=== PATIENT | female | born 1985 | race Caucasian/White ===

== ENCOUNTER 2017-01-10 04:25 | Inpatient (IN) | payer OTHER ==
[2017-01-10] MEDS ORDERED: Levothyroxine TAB* 175 MCG TAB PO SCH (06:00)
[2017-01-10] MEDS ORDERED: Dibucaine 1% 28.35 GM TUBE PR PRN (14:16)
[2017-01-10] MEDS ORDERED: Acetaminophen TAB* 325 MG PO PRN (14:16)
[2017-01-10] MEDS ORDERED: Witch Hazel PAD* JAR TOPICAL PRN (14:16)
[2017-01-10] MEDS: Ibuprofen TAB* 600 MG PO PRN ×2 (14:29→21:36)
[2017-01-10] MEDS: Docusate CAP* 100 MG PO SCH (21:36)
[2017-01-11 06:52] LABS: Hematocrit 34 % (35-47); Hemoglobin 11.6 g/dl (12.0-16.0); Mean Corpuscular HGB Conc 34 g/dl (31-36); Mean Corpuscular Hemoglobin 28 pg (27-31); Mean Corpuscular Volume 82 fL (80-97); Mean Platelet Volume 8 um3 (7.4-10.4); Red Blood Count 4.11 10^6/ul (4.0-5.4); Red Cell Distribution Width 15 % (10.5-15); White Blood Count 10.2 10^3/ul (3.5-10.8)
[2017-01-11] MEDS: [UNRECOGNIZED DRUG - OTHER] PO SCH ×2 (07:35→19:38)
[2017-01-11] MEDS ORDERED: Ferrous Gluconate TAB* 324 MG TAB PO SCH (09:00)
[2017-01-11] MEDS: Docusate CAP* 100 MG PO SCH ×3 (09:03→21:10)
[2017-01-12] MEDS: Levothyroxine TAB* 175 MCG TAB PO SCH ×2 (04:24→07:24)
[2017-01-12] MEDS: Ibuprofen TAB* 600 MG PO PRN ×2 (07:34→14:19)
[2017-01-12 07:56] VITALS: BP 104/66
[2017-01-12] MEDS: [UNRECOGNIZED DRUG - OTHER] PO SCH (09:00)
[2017-01-12] MEDS: Docusate CAP* 100 MG PO SCH ×2 (09:11→14:19)
== END 2017-01-12 16:16 | disposition home or self-care (01) | DRG 560 ==
LOC: MCHOBOUT 04:25 → MCHOB 04:59
PROVIDERS: ADMIT Midwife; ATTEND Midwife
PROC: 10E0XZZ Delivery of Products of Conception, External Approach (ICD-10-PCS; principal; 2017-01-10)
PROC: 0HQ9XZZ Repair Perineum Skin, External Approach (ICD-10-PCS; 2017-01-10)
DX: O24.429 Gestational diabetes mellitus in childbirth, unspecified control (principal); E03.9 Hypothyroidism, unspecified; O99.284 Endocrine, nutritional and metabolic diseases complicating childbirth; O70.0 First degree perineal laceration during delivery; Z3A.40 40 weeks gestation of pregnancy; Z37.0 Single live birth
CPT/HCPCS: 36415; 85025; A9270-GY

== ENCOUNTER 2018-09-10 16:47 | Emergency (ER) | payer OTHER ==
[2018-09-10 18:21] LABS: ABS Basophils 0.1 10^3/ul (0-0.2); ABS Eosinophils 0.4 10^3/ul (0-0.6); ABS Lymphocytes 3.2 10^3/ul (1.0-4.8); ABS Monocytes 0.6 10^3/ul (0-0.8); ABS Neutrophils 5.3 10^3/ul (1.5-7.7); ABS Nucleated RBC 0 10^3/ul; Eosinophil % 4.6 %; Hematocrit 35 % (33-41); Hemoglobin 12.2 g/dL (12.0-16.0); Lymphocyte % 33.2 %; Mean Corpuscular HGB Conc 35 g/dL (31-36); Mean Corpuscular Hemoglobin 30 pg (27-31); Mean Corpuscular Volume 86 fL (80-97); Mean Platelet Volume 7.4 fL (7.4-10.4); Nucleated Red Blood Cells % 0; Platelet Count 178 10^3/uL (150-450); Red Blood Count 4.07 10^6 /uL (3.70-4.87); Red Cell Distribution Width 14 % (10.5-15); White Blood Count 9.5 10^3/uL (3.5-10.8)
[2018-09-10 18:38] LABS: Albumin 3.5 g/dL (3.2-5.2); Albumin/Globulin Ratio 1.2 (1-3); BUN/Creatinine Ratio 16.7 (8-20); C Reactive Protein 12.53 mg/L (<8.01); Calcium 8.9 mg/dL (8.6-10.3); EGFR African American 181.4 (>60); EGFR Non-African American 149.9 (>60); Potassium 3.4 mmol/L (3.5-5.0); Total Bilirubin 0.3 mg/dL (0.2-1.0); Total Protein 6.5 g/dL (6.4-8.9)
[2018-09-10 19:59] LABS: Urine Appearance Cloudy; Urine Bilirubin Negative (Negative); Urine Blood Negative (Negative); Urine Color Yellow; Urine Glucose Negative (Negative); Urine Ketones Negative (Negative); Urine Nitrite Negative (Negative); Urine Protein Negative (Negative); Urine Specific Gravity 1.008 (1.010-1.030); Urine Urobilinogen Negative (Negative)
--- NOTE | 2018-09-10 21:47 | ED ---
- HPI Summary HPI Summary: Patient is a 32 y/o F presenting to ED with complaints of sharp, stabbing umbilical pain throughout today. She is 26 weeks , states that she has been having what she describes as muscular pain at left of the umbilical area for the past few months. This morning, she began to experience current presentation of pain at her mid umbilical region. She notes that the area is tender. Slight nausea is endorsed, no vomiting reported. She states that she has felt the baby moving throughout the night. Hx of thyroid cancer, for which she had surgery. On triage, pain is rated 7/10. Nothing is noted to aggravate/ alleviate Sx. Home medications and allergies are reviewed. - History of Current Complaint Chief Complaint: EDAbdPain Stated Complaint: DOCTOR WANTS STRANGULATED HERNIA CHECKED PER PT Time Seen by Provider: 09/10/18 21:20 Hx Obtained From: Patient Onset/Duration: Started Hours Ago - pain throughout today, Started Weeks Ago - a few months of left sided umbilical muscular pain, Still Present Timing: Constant, Lasting Hours - pain throughout today, Lasting Weeks - a few months of left sided umbilical muscular pain Severity: Severe - 7/10 Current Severity: Severe - 7/10 Pain Intensity: 7 Location of Pain: Other: - umbilical area Aggravating Factors: Nothing Alleviating Factors: Nothing Associated Signs and Symptoms: Positive: Nausea. Negative: Vomiting - Assessment Hx Now: No SAB: 0 IEA: 0 Hx Hysterectomy: No - Additional Pertinent History Maternal Blood Type and Rh: A Positive - Allergies/Home Medications Allergies/Adverse Reactions: Allergies Allergy/AdvReac Type Severity Reaction Status Date / Time No Known Allergies Allergy Verified 12/24/15 15:54 PMH/Surg Hx/FS Hx/Imm Hx Endocrine/Hematology History: Reports: Hx Thyroid Disease Denies: Hx Diabetes Cardiovascular History: Denies: Hx Hypertension Respiratory History: Denies: Hx Asthma, Hx Chronic Obstructive Pulmonary Disease (COPD) GI History: Denies: Hx Ulcer - Cancer History Cancer Type, Location and Year: thyroid - Surgical History Surgery Procedure, Year, and Place: thyroidectomy. LEEP Infectious Disease History: No Infectious Disease History: Denies: Hx Clostridium Difficile, Hx Hepatitis, Hx Human Immunodeficiency Virus (HIV), Hx of Known/Suspected MRSA, Hx Shingles, Hx Tuberculosis, Hx Known/ Suspected VRE, Hx Known/Suspected VRSA, History Other Infectious Disease, Traveled Outside the [place] in Last 30 Days - Family History Known Family History: Positive: Other - cholecystectomy (mother) - Social History Alcohol Use: None Substance Use Type: Reports: None Smoking Status (MU): Never Smoked Tobacco Review of Systems Negative: Fever Positive: Abdominal Pain - umbilical , Nausea. Negative: Vomiting All Other Systems Reviewed And Are Negative: Yes Physical Exam - Summary Physical Exam Summary: Appearance: Well-appearing, Well-nourished, lying in bed comfortably Skin: Warm, dry, no obvious rash Eyes: sclera anicteric, no conjunctival pallor ENT: mucous membranes moist, pharynx appears normal Neck: Supple, nontender Respiratory: Clear to auscultation, no signs of respiratory distress Cardiovascular: Normal S1, S2. No murmurs. Normal distal pulses in tibial and radial bilaterally. Abdomen: Soft, normal active bowel sounds present; abdomen is gravid consistent with patient's dates. There is a small, periumbilical hernia that is tender and approximately the size of a blueberry. Musculoskeletal: Normal, Strength/ROM Intact Neurological: A&Ox3, awake and alert, mentation is normal, speech is fluent and appropriate Psychiatric: affect is normal, does not appear anxious or depressed - Physical Exam Triage Information Reviewed: Yes Vital Signs On Initial Exam: Initial Vitals Temp Pulse Resp BP Pulse Ox 97.4 F 96 16 123/70 98 09/10/18 16:57 09/10/18 16:57 09/10/18 16:57 09/10/18 16:57 09/10/18 16:57 Vital Signs Reviewed: Yes Diagnostics - Vital Signs Vital Signs Temp Pulse Resp BP Pulse Ox 09/10/18 19:36 97.8 F 79 18 109/70 98 09/10/18 16:57 97.4 F 96 16 123/70 98 - Laboratory Lab Results: Lab Results 09/10/18 09/10/18 09/10/18 Range/Units 18:11 18:11 18:12 WBC 9.5 (3.5-10.8) 10^3/uL RBC 4.07 (3.70-4.87) 10^6 /uL Hgb 12.2 (12.0-16.0) g/dL Hct 35 (33-41) % MCV 86 (80-97) fL MCH 30 (27-31) pg MCHC 35 (31-36) g/dL RDW 14 (10.5-15) % Plt Count 178 (150-450) 10^3/uL MPV 7.4 (7.4-10.4) fL Neut % (Auto) 55.1 % Lymph % (Auto) 33.2 % [place] % (Auto) 6.5 % Eos % (Auto) 4.6 % Baso % (Auto) 0.6 % Absolute Neuts (auto) 5.3 (1.5-7.7) 10^3/ul Absolute Lymphs (auto) 3.2 (1.0-4.8) 10^3/ul Absolute Monos (auto) 0.6 (0-0.8) 10^3/ul Absolute Eos (auto) 0.4 (0-0.6) 10^3/ul Absolute Basos (auto) 0.1 (0-0.2) 10^3/ul Absolute Nucleated RBC 0 10^3/ul Nucleated RBC % 0 Sodium 136 (135-145) mmol/L Potassium 3.4 L (3.5-5.0) mmol/L Chloride 106 (101-111) mmol/L Carbon Dioxide 22 (22-32) mmol/L Anion Gap 8 (2-11) mmol/L BUN 8 (6-24) mg/dL Creatinine 0.48 L (0.51-0.95) mg/dL Est GFR ( Amer) 181.4 (>60) Est GFR (Non-Af Amer) 149.9 (>60) BUN/Creatinine Ratio 16.7 (8-20) Glucose 109 H (70-100) mg/dL Lactic Acid 1.1 (0.5-2.0) mmol/L Calcium 8.9 (8.6-10.3) mg/dL Total Bilirubin 0.30 (0.2-1.0) mg/dL AST 11 L (13-39) U/L ALT 9 (7-52) U/L Alkaline Phosphatase 51 (34-104) U/L C-Reactive Protein 12.53 H (<8.01) mg/L Total Protein 6.5 (6.4-8.9) g/dL Albumin 3.5 (3.2-5.2) g/dL Globulin 3.0 (2-4) g/dL Albumin/Globulin Ratio 1.2 (1-3) Lipase 20 (11.0-82.0) U/L Urine Color Urine Appearance Urine pH (5-9) Ur Specific [place] (1.010-1.030) Urine Protein (Negative) Urine Ketones (Negative) Urine Blood (Negative) Urine Nitrate (Negative) Urine Bilirubin (Negative) Urine Urobilinogen (Negative) Ur Leukocyte Esterase (Negative) Urine Glucose (Negative) 09/10/18 Range/Units 19:42 WBC (3.5-10.8) 10^3/uL RBC (3.70-4.87) 10^6 /uL Hgb (12.0-16.0) g/dL Hct (33-41) % MCV (80-97) fL MCH (27-31) pg MCHC (31-36) g/dL RDW (10.5-15) % Plt Count (150-450) 10^3/uL MPV (7.4-10.4) fL Neut % (Auto) % Lymph % (Auto) % [place] % (Auto) % Eos % (Auto) % Baso % (Auto) % Absolute Neuts (auto) (1.5-7.7) 10^3/ul Absolute Lymphs (auto) (1.0-4.8) 10^3/ul Absolute Monos (auto) (0-0.8) 10^3/ul Absolute Eos (auto) (0-0.6) 10^3/ul Absolute Basos (auto) (0-0.2) 10^3/ul Absolute Nucleated RBC 10^3/ul Nucleated RBC % Sodium (135-145) mmol/L Potassium (3.5-5.0) mmol/L Chloride (101-111) mmol/L Carbon Dioxide (22-32) mmol/L Anion Gap (2-11) mmol/L BUN (6-24) mg/dL Creatinine (0.51-0.95) mg/dL Est GFR ( Amer) (>60) Est GFR (Non-Af Amer) (>60) BUN/Creatinine Ratio (8-20) Glucose (70-100) mg/dL Lactic Acid (0.5-2.0) mmol/L Calcium (8.6-10.3) mg/dL Total Bilirubin (0.2-1.0) mg/dL AST (13-39) U/L ALT (7-52) U/L Alkaline Phosphatase (34-104) U/L C-Reactive Protein (<8.01) mg/L Total Protein (6.4-8.9) g/dL Albumin (3.2-5.2) g/dL Globulin (2-4) g/dL Albumin/Globulin Ratio (1-3) Lipase (11.0-82.0) U/L Urine Color Yellow Urine Appearance Cloudy Urine pH 6.0 (5-9) Ur Specific [place] 1.008 L (1.010-1.030) Urine Protein Negative (Negative) Urine Ketones Negative (Negative) Urine Blood Negative (Negative) Urine Nitrate Negative (Negative) Urine Bilirubin Negative (Negative) Urine Urobilinogen Negative (Negative) Ur Leukocyte Esterase Negative (Negative) Urine Glucose Negative (Negative) Result Diagrams: 09/10/18 18:11 09/10/18 18:11 Lab Statement: Any lab studies that have been ordered have been reviewed, and results considered in the medical decision making process. - Ultrasound No standard instances Ultrasound Interpretation Completed By: Radiologist Summary of Ultrasound Findings: ABDOMINAL US IMPRESSION: An umbilical hernia containing what appears to be a small bowel loop which does. not appear to change with valsalsa maneuver. If incarceration of the hernia. with complication such as small bowel obstruction is of clinical concern,. further evaluation with a CT of the abdomen may be considered. THIS REPORT WAS REVIEWED BY DR. MASON. Re-Evaluation - Re-Evaluation First Eval Re-Evaluation Time: 21:52 Change: Unchanged Comment: Informed of consult with Man[facility], patient is agreeable with plan. Attempted to reduce hernia, was unsuccessful. Second attempt to be made later. Second Eval Re-Evaluation Time: 00:19 Change: Improved Comment: Second attempt at reduction was successful. Patient will be discharged to home and follow up with Dr. Goel, she is agreeable with this. Course/Dx - Course Course Of Treatment: Patient is a 32 y/o F presenting to ED with complaints of sharp, stabbing umbilical pain throughout today. She is 26 weeks , states that she has been having what she describes as muscular pain at left of the umbilical area for the past few months. This morning, she began to experience current presentation of pain at her mid umbilical region. She notes that the area is tender. Slight nausea is endorsed, no vomiting reported. She states that she has felt the baby moving throughout the night. Hx of thyroid cancer, for which she had surgery. On physical exam, abdomen is gravid consistent with patient's dates. There is a small, periumbilical hernia that is tender and approximately the size of a blueberry. Patient's case was discussed with Dr. Goel at 2146, Dr. Goel recommends attempting to reduce hernia and to obtain US. Labs showed potassium 3.4, creatinine 0.48, glucose 109, lactic acid 1.1, AST 11, CRP 12.53, lipase 20. UA was negative. ABDOMINAL US IMPRESSION: An umbilical hernia containing what appears to be a small bowel loop which does. not appear to change with valsalsa maneuver. If incarceration of the hernia. with complication such as small bowel obstruction is of clinical concern,. further evaluation with a CT of the abdomen may be considered. First hernia reduction attempt was unsuccessful, second was successful. Results of labs and tests were discussed patient will be discharged to home and follow up with Dr. Goel, she is agreeable with this. - Diagnoses Provider Diagnoses: Umbilical hernia - Provider Notifications Discussed Care Of Patient With: Javier Goel Time Discussed With Above Provider: 21:47 Instructed by Provider To: Other - Patient's case was discussed with Dr. Goel at 2146, Dr. Goel recommends attempting to reduce hernia and to obtain US. Discharge - Sign-Out/Discharge Documenting (check all that apply): Patient Departure - discharge Patient Received Moderate/Deep Sedation with Procedure: No - Discharge Plan Condition: Stable Disposition: HOME Patient Education Materials: Umbilical Hernia (ED) Forms: *Work Release Referrals: Javier Goel MD [Medical Doctor] - Additional Instructions: Call Dr. Goel' office in the morning and make an appt for later in the week so he can examine you and make sure everything is ok with the hernia. It will hurt, so you need to rest it and avoid lifting or anything that will tend to make you tense your abdomen. Ice can help, as can tylenol. I do not expect worsening symptoms, or new symptoms such as nausea/vomiting, so if that happens you should check in with Dr. Goel sooner, or come back to the ED. - Billing Disposition and Condition Condition: STABLE Disposition: Home - Attestation Statements Document Initiated by Luz Maria: Yes Documenting Scribe: PAWAN MEDEROS Provider For Whom Luz Maria is Documenting (Include Credential): FRANCOISE MASON MD Scribe Attestation: IPAWAN, scribed for FRANCOISE MASON MD on 09/15/18 at 1847. Scribe Documentation Reviewed: Yes Provider Attestation: The documentation as recorded by the PAWAN alvarez accurately reflects the service I personally performed and the decisions made by me, FRANCOISE MASON MD Status of Scribe Document: Viewed
[2018-09-11 00:30] VITALS: BP 105/59
== END 2018-09-11 00:29 | disposition home or self-care (01) ==
LOC: ED 16:47
DX: O26.92 Pregnancy related conditions, unspecified, second trimester (principal); K42.9 Umbilical hernia without obstruction or gangrene; R10.33 Periumbilical pain; E07.9 Disorder of thyroid, unspecified; Z3A.26 26 weeks gestation of pregnancy
CPT/HCPCS: 36415; 76705; 80053; 81003; 83605; 83690; 85025; 86140; 99282

== ENCOUNTER 2018-09-24 07:51 | Day surgery (SDC) | payer OTHER ==
[~2018-09-24 07:51] MED LIST: Buffered Lidocaine 1% SYRIN* 1 ML/SYRINGE INTRADERM ONE; Lactated Ringers 1000 ML Bag* 1,000 ML IV SCH
[2018-09-24] MEDS ORDERED: Buffered Lidocaine 1% SYRIN* 1 ML/SYRINGE INTRADERM ONE (08:13)
[2018-09-24] MEDS ORDERED: ceFAZolin 2 GM PREMIX in ORs 2 GM/50 ML BAG IVPB ONE (08:13)
[2018-09-24] MEDS ORDERED: Famotidine IV* 10 MG/ML 2 ML (20 mg) ONE (08:43)
[2018-09-24] MEDS ORDERED: Lidocaine 1% INJ* 10 MG/ML 30 ML SDV ONE (09:59)
[2018-09-24] MEDS ORDERED: Bupivacaine 0.5% W/EPI SDV* 30 ML VIAL ONE (09:59)
[2018-09-24] MEDS ORDERED: diPHENhydraMINE IV* 50 MG/ML 1 ml VIAL (BENADRYL) ONE (10:08)
[2018-09-24] MEDS ORDERED: Ketorolac INJ* 30 MG/ML 1 ML VIAL ONE (10:09)
[2018-09-24] MEDS ORDERED: Lidocaine 2% PF * 5 ML VIAL ONE (10:09)
[2018-09-24] MEDS ORDERED: Propofol* 10 MG/ML 20 ML BTL ONE ×2 (10:09→10:35)
[2018-09-24] MEDS ORDERED: Acetaminophen IV 1GM/100ML * 100 ML ONE (10:21)
[2018-09-24] MEDS ORDERED: DiMENhydriNATE IV* 50 MG/ML VIAL IV PUSH PRN (10:28)
[2018-09-24] MEDS ORDERED: Ondansetron INJ* 2 MG/ML VIAL IV PRN (10:28)
[2018-09-24] MEDS ORDERED: Acetaminophen IV 1GM/100ML * 1,000 MG/100 ML VIAL IVPB ONE (10:28)
[2018-09-24] MEDS ORDERED: Naloxone* 0.4 MG/ML 1 ML VIAL IV PRN (10:28)
[2018-09-24 11:18] VITALS: BP 108/72
--- NOTE | 2018-09-25 02:27 | OP ---
CC: Aster Ash MD; Jamar Wilson MD * DATE OF OPERATION: 09/24/18 - [facility] DATE OF : 85 SURGEON: Javier Goel MD BELT SANDER: None. ANESTHESIOLOGIST: Dr. Salter. ANESTHESIA: Local MAC. PRE-OP DIAGNOSIS: Umbilical hernia. POST-OP DIAGNOSIS: Umbilical hernia. OPERATIVE PROCEDURE: Open repair umbilical hernia. ESTIMATED BLOOD LOSS: Minimal. IV FLUIDS: Crystalloid. SPECIMEN: None. DRAINS: None. COMPLICATIONS: None. COUNTS: Instruments, needle, and sponge counts were correct. DESCRIPTION OF PROCEDURE: The patient was brought to the operating room and placed on the table supine. Sequential compression devices were placed on both lower extremities and the patient was administered intravenous antibiotics as appropriate. She received intravenous sedation. She was positioned left decubitus due to . She was prepped and draped in the usual sterile fashion. A time-out was performed. Local anesthetic was infiltrated to the skin and soft tissue in the periumbilical region. A curvilinear infraumbilical incision was created and cautery was used to divide the subcutaneous tissues. The umbilical stalk was dissected off the anterior abdominal wall. Umbilical hernia defect measuring 2 cm was identified. was reduced. The edges of the fascia were well defined and healthy. Primary closure was performed with 0 Ethibond suture using two [id number] stitches to complete the closure. Umbilical stalk was reapproximated with 3-0 Vicryl. Skin was closed with 4-0 Monocryl in running subcuticular fashion. Steri- Strips were applied with 4x4 gauze. The patient tolerated the procedure well and was awakened and transferred to the recovery in stable condition. [id number]/[facility] #: [id number] [facility]
== END 2018-09-24 13:37 | disposition home or self-care (01) ==
LOC: OR 07:51
PROVIDERS: ATTEND Surgery
DX: K42.9 Umbilical hernia without obstruction or gangrene (principal); E03.9 Hypothyroidism, unspecified; F41.9 Anxiety disorder, unspecified; Z33.1 Pregnant state, incidental; R00.2 Palpitations
CPT/HCPCS: J0690; J1200; J1885; J2704

== ENCOUNTER 2018-10-16 20:32 | Emergency (ER) | payer OTHER ==
--- NOTE | 2018-10-16 22:43 | ED ---
Abdominal Pain/Female - HPI Summary HPI Summary: Patient with history of 31 weeks complains of intermittent right upper quadrant pain 2 months. States pain has been getting worse and has been more constant and intense past 2 days. Pain now constant, rated 7/10. Associated with some nausea and decreased by mouth intake. Patient states pain does not change with movement, not particularly associated with eating. Denies trauma, fever, cough, sore throat, CP, SOB, V/D, change in urine, change in BM, vaginal symptoms. Medical history is hypothyroid. Abdominal surgical history is umbilical hernia repair 3 weeks ago. - History of Current Complaint Chief Complaint: EDAbdPain Stated Complaint: UPPER RIGHT ABD PAIN PER PT Time Seen by Provider: 10/16/18 22:39 Hx Obtained From: Patient Hx Last Menstrual Period: 11/16/14 Onset/Duration: Gradual Onset, Lasting Weeks Timing: Constant Severity Initially: Severe Severity Currently: Severe Pain Intensity: 8 Pain Scale Used: 0-10 Numeric Location: Discrete At: RUQ Radiates: No Character: Sharp, Cramping Aggravating Factor(s): Deep Breaths Alleviating Factor(s): Nothing Associated Signs and Symptoms: Positive: Decreased Appetite, Nausea Allergies/Adverse Reactions: Allergies Allergy/AdvReac Type Severity Reaction Status Date / Time No Known Allergies Allergy Verified 10/16/18 20:37 PMH/Surg Hx/FS Hx/Imm Hx Endocrine/Hematology History: Reports: Hx Thyroid Disease - HX OF CANCER IN 2008 -THYROIDECTOMY Denies: Hx Diabetes Cardiovascular History: Denies: Hx Hypertension, Other Cardiovascular Problems/Disorders Respiratory History: Denies: Hx Asthma, Hx Chronic Obstructive Pulmonary Disease (COPD), Other Respiratory Problems/Disorders GI History: Denies: Hx Ulcer, Other GI Disorders History: Denies: Other Problems/Disorders Musculoskeletal History: Denies: Other Musculoskeletal History Sensory History: Denies: Hx Contacts or Glasses, Hx Hearing Aid Opthamlomology History: Denies: Hx Contacts or Glasses EENT History: Denies: Hx Deafness Neurological History: Denies: Hx Dementia, Other Neuro Impairments/Disorders Psychiatric History: Reports: Hx Anxiety - NO MEDICATION FOR- STARTED RECENTLY- REPORTS TALKING TO OBGYN - Cancer History Cancer Type, Location and Year: thyroid - Surgical History Surgery Procedure, Year, and Place: thyroidectomy. LEEP. INTRATHECAL WITH FIRST LABOR-CAUSING INCREASED PAIN Hx Anesthesia Reactions: No - INTRATHECAL CAUSED INCREASED PAIN-2007 Infectious Disease History: No Infectious Disease History: Denies: Hx Clostridium Difficile, Hx Hepatitis, Hx Human Immunodeficiency Virus (HIV), Hx of Known/Suspected MRSA, Hx Shingles, Hx Tuberculosis, Hx Known/ Suspected VRE, Hx Known/Suspected VRSA, History Other Infectious Disease, Traveled Outside the [place] in Last 30 Days - Family History Known Family History: Positive: Other - cholecystectomy (mother) - Social History Alcohol Use: None Substance Use Type: Reports: None Smoking Status (MU): Never Smoked Tobacco Review of Systems Constitutional: Negative Eyes: Negative ENT: Negative Cardiovascular: Negative Respiratory: Negative Positive: Abdominal Pain, Nausea Genitourinary: Negative Musculoskeletal: Negative Skin: Negative Neurological: Negative Psychological: Normal All Other Systems Reviewed And Are Negative: Yes Physical Exam - Summary Physical Exam Summary: Tenderness to palpation right upper quadrant and right flank. No CVA tenderness. Lung sounds clear to auscultation bilaterally. No peripheral edema. RRR. Triage Information Reviewed: Yes Vital Signs On Initial Exam: Initial Vitals Temp Pulse Resp BP Pulse Ox 97.6 F 89 16 96/81 98 10/16/18 20:34 10/16/18 20:34 10/16/18 20:34 10/16/18 20:34 10/16/18 20:34 Vital Signs Reviewed: Yes Appearance: Positive: Well-Appearing Skin: Positive: Warm Head/Face: Positive: Normal Head/Face Inspection Eyes: Positive: Normal Neck: Positive: Supple Respiratory/Lung Sounds: Positive: Clear to Auscultation Cardiovascular: Positive: Normal Abdomen Description: Positive: Other: Musculoskeletal: Positive: Normal Neurological: Positive: Normal Psychiatric: Positive: Normal AVPU Assessment: Alert - [place] Coma Scale Best Eye Response: 4 - Spontaneous Best Motor Response: 6 - Obeys Commands Best Verbal Response: 5 - Oriented Coma Scale Total: 15 Diagnostics - Vital Signs Vital Signs Temp Pulse Resp BP Pulse Ox 10/16/18 20:34 97.6 F 89 16 96/81 98 - Laboratory Result Diagrams: 10/16/18 22:49 10/16/18 22:49 Lab Statement: Any lab studies that have been ordered have been reviewed, and results considered in the medical decision making process. Abdominal Pain Fem Course/Dx - Course Course Of Treatment: Patient with history of 31 weeks complains of intermittent right upper quadrant pain 2 months. States pain has been getting worse and has been more constant and intense past 2 days. Pain now constant, rated 7/10. Associated with some nausea and decreased by mouth intake. Patient states pain does not change with movement, not particularly associated with eating. Denies trauma, fever, cough, sore throat, CP, SOB, V/D, change in urine, change in BM, vaginal symptoms. Medical history is hypothyroid. Abdominal surgical history is umbilical hernia repair 3 weeks ago. Physical exam:Tenderness to palpation right upper quadrant and right flank. No CVA tenderness. Lung sounds clear to auscultation bilaterally. No peripheral edema. RRR. Vital signs within normal limits. Labs unremarkable. Ultrasound gallbladder negative. Urine negative. Discussed patient with Dr. Sarmiento who agreed patient could be discharged home. Advised patient to follow up with OB/ [facility] for further evaluation. Patient understands and approves of plan. - Diagnoses Provider Diagnoses: Right upper quadrant pain, Discharge - Sign-Out/Discharge Documenting (check all that apply): Patient Departure Patient Received Moderate/Deep Sedation with Procedure: No - Discharge Plan Condition: Stable Disposition: HOME Patient Education Materials: Abdominal Pain in (ED) Referrals: Aster Ash MD [Primary Care Provider] - Additional Instructions: Follow-up with your [facility] for further evaluation. Return to the ED for any new or worsening symptoms. - Billing Disposition and Condition Condition: STABLE Disposition: Home
[2018-10-16 22:56] LABS: ABS Eosinophils 0.4 10^3/ul (0-0.6); ABS Lymphocytes 2.7 10^3/ul (1.0-4.8); ABS Monocytes 0.7 10^3/ul (0-0.8); ABS Neutrophils 5.6 10^3/ul (1.5-7.7); Eosinophil % 4.3 %; Hematocrit 34 % (35-47); Hemoglobin 11.7 g/dL (12.0-16.0); Lymphocyte % 28.5 %; Mean Corpuscular HGB Conc 34 g/dL (31-36); Mean Corpuscular Hemoglobin 29 pg (27-31); Mean Corpuscular Volume 86 fL (80-97); Mean Platelet Volume 7.6 fL (7.4-10.4); Platelet Count 161 10^3/uL (150-450); Red Blood Count 3.98 10^6 /uL (3.70-4.87); Red Cell Distribution Width 14 % (10.5-15); White Blood Count 9.4 10^3/uL (3.5-10.8)
[2018-10-16 23:12] LABS: Albumin 3.5 g/dL (3.2-5.2); Albumin/Globulin Ratio 1.2 (1-3); BUN/Creatinine Ratio 18.2 (8-20); Calcium 8.5 mg/dL (8.6-10.3); EGFR African American 200.5 (>60); EGFR Non-African American 165.7 (>60); Potassium 3.5 mmol/L (3.5-5.0); Total Bilirubin 0.3 mg/dL (0.2-1.0); Total Protein 6.5 g/dL (6.4-8.9)
[2018-10-16 23:38] LABS: Urine Appearance Clear; Urine Bilirubin Negative (Negative); Urine Blood Negative (Negative); Urine Color Yellow; Urine Glucose Negative (Negative); Urine Ketones Negative (Negative); Urine Nitrite Negative (Negative); Urine Protein Negative (Negative); Urine Specific Gravity 1.017 (1.010-1.030); Urine Urobilinogen Negative (Negative)
[2018-10-17 00:32] VITALS: BP 114/80
== END 2018-10-17 00:32 | disposition home or self-care (01) ==
LOC: ED 20:32
DX: R10.11 Right upper quadrant pain (principal); O26.893 Other specified pregnancy related conditions, third trimester; Z3A.31 31 weeks gestation of pregnancy; Z85.850 Personal history of malignant neoplasm of thyroid
CPT/HCPCS: 36415; 76705; 80053; 81003; 83690; 85025; 99283

== ENCOUNTER 2018-12-31 06:06 | Inpatient (IN) | payer OTHER ==
--- NOTE | 2018-12-31 06:51 | PN ---
Progress Note - Progress Note Date of Service: 12/31/18 Note: Pt presents from home for evaluation of labor 33 year-old at 41 weeks by 14 week sono. Reports UCs intermittently but strong overnight. Woke this AM and noted blood tinged mucus type discharge with wiping and much more regular UCs as close as q 2-[address] driving to [facility] reports they spaced out to q 4-6 min and now starting to feel closer again. + Bloody show. Denies VB. No LOF or leaking. Describes active FM course: Routine OB care established at 15 weeks x 13 visits. A+, ABS- , Rubella immune, RPR NR, HepBsAg -, 1 hour GCT 130, GBS negative. Hypothyroid on replacement. complicated by incarcerated umbilical hernia with surgical repair 09/24/18 For complete H&P see [facility] records O: BP 105/68 HR 88 RR 16 T 97.4 SpO2 99% on RA FHT 145bpm. Moderate variability. No accels at this time x 20 min of tracing. No decels UCs difficult to trace, irregular VE 2-3/50%/vtx high +bloody show A: IUP at 41 weeks in latent labor No evidence of metabolic acidemia - bears close watching P: Will continue to monitor. Report to Jad Eduardo CNM who will assume care at 0800
[2018-12-31 07:18] LABS: Urine Benzodiazepine Screen None Detected (None Detect); Urine Opiates Screen None Detected (None Detect)
--- NOTE | 2018-12-31 08:31 | PN ---
Progress Note - Progress Note Date of Service: 12/31/18 Note: Report from Buddy Howell CNM. Assumed care at 0800. IUP@41 weeks in early labor; A+; GBS negative course complicated by hypothyroidism (on replacement); and anxiety Pt sleeping. Per family/support, up all night. Contractions have slowed since arriving at hospital, but are starting to pick- up again. Roughly every 7 minutes. FHR: 150, moderate variability, occasional variable decel. No evidence of metabolic acidemia. VE deferred. Last check at 630: 2.5/50/-2. IBOW. VE prn. plan per FOB: declines vaccines, vitamin K, eye ointment; would like to keep placenta Anticipate progression to active labor and
--- NOTE | 2018-12-31 08:59 | HP ---
General Information - Reason for Visit IUP@41 weeks in active labor - General Information Maternal Age: 33 Grav: 4 Para: 3 SAB: 0 IEA: 0 Estimated Due Date: 12/24/18 Determined By: LMP Gestational Age in Weeks/Days: 41 Maternal Blood Type and Rh: A Positive - Results this Serology/RPR Result: Non-Reactive Rubella Result: Immune HBsAg Result: Negative HIV Result: Negative GBS Culture Result: Negative Past Medical History Delivery History: Hx Uncomplicated Vaginal Delivery - Hx of GDM Pertinent Past Medical History: See Records - hypothyroidism, anxiety Past Medical History Comment: Thyroid cancer, thyroidectomy Palpitations UTIs Abdominal hernia repair [employer]: LEEP, colposcopy Past Surgical History Comment: Thyroidectomy Abdominal hernia repair Pertinent Family History: Non-Contributory - Antepartal Records Antepartal Records: Reviewed, Complicated by: - hypothyroidism, anxiety Review of Systems Constitutional: Uncomfortable CV Complaint: No Respiratory: Shortness of Breath: No Gastrointestinal: No Nausea/Vomiting, Normal Bowel Movement Genitourinary: No Dysuria, No Bleeding, No Leaking Fluid Musculoskeletal: Contractions Neurological: No Headache, No Visual Changes Movement: Normal Exam Allergies/Adverse Reactions: Allergies No Known Allergies Allergy (Verified 12/31/18 06:18) Vital Signs 12/31/18 06:44 Temperature 97.4 F Pulse Rate 88 Respiratory 16 Rate Blood Pressure 105/68 (mmHg) O2 Sat by Pulse 99 Oximetry Lab Values - Entire Visit: Laboratory Tests 12/31/18 06:34 Urine Opiates Screen None detected Ur Barbiturates Screen None detected Ur Phencyclidine Scrn None detected Ur Amphetamines Screen None detected U Benzodiazepines Scrn None detected Urine Cocaine Screen None detected U Cannabinoids Screen None detected - Measurements Height: 5 ft 2 in Weight: 213 lb Weight in lbs: [phone] Body Mass Index (BMI): 38.9 Pre- Weight: 165 lb Weight Gained This : 48 lbs and 0 ozs - Exam Breast: Breast Exam Deferred CVA: No CVA Tenderness Extremities: No Edema Heart: Normal Rhythm/Heart Sounds HEENT: No Significant Findings Lungs: Clear Bilaterally Rectal: Rectal Exam Deferred Targeted Exam Findings Estimated Weight: 8lbs Cervical Exam: 3cm, 4cm - Per Buddy Howell CNM Effacement: 50% Station: -2 Presenting Part: Vertex Membrane Status: Intact Bleeding/Discharge: None EFM Findings - External Monitor Findings Baseline Heart Rate: 150 External Monitor Findings: Accelerations Present, No Pattern of Variable or Late Decelerations, Variability Moderate External Monitor Findings Comment: No evidence of metabolic acidemia Contractions: Regular, Strong - Ctx 2 mins, >90 Seconds Assessment/Plan - Assessment IUP@41 weeks in early labor; A+; GBS negative course complicated by hypothyroidism (on replacement); and anxiety Ginette every 2-3 mins FHR: 150, moderate variability, occasional variable decel. No evidence of metabolic acidemia. VE deferred. Last check at 630: 2.5/50/-2. IBOW. VE prn. Anticipate progression to - Obstetrical Risk Factors Obstetrical Risk Factors: Post-Dates - Plan Plan: Admit - Anticipate Vaginal Delivery Plan Comment: Admit to L&D Intermittent monitoring VE prn Anticipate progression to - Date/Time of Admission Date of Admission: 12/31/18 Time of Admission: 09:00
[2018-12-31] MEDS ORDERED: Glycerin ADULT SUPP PR PRN (10:32)
[2018-12-31] MEDS ORDERED: OXYTOCIN* 10 UNITS/ML 1 ML VIAL IM ONE (10:32)
[2018-12-31] MEDS ORDERED: Dibucaine 1% 28.35 GM TUBE PR PRN (10:32)
[2018-12-31] MEDS: Ibuprofen TAB* 600 MG PO PRN ×2 (10:47→18:23)
[2018-12-31] MEDS ORDERED: Lactated Ringers 1000 ML Bag* 1,000 ML IV SCH (11:00)
[2018-12-31] MEDS: Acetaminophen TAB* 325 MG PO PRN ×3 (11:02→20:17)
--- NOTE | 2018-12-31 11:08 | PROCNOTE ---
[facility] OB: Delivery Note - Delivery A Date of : 12/31/18 Time of : 09:59 [place] Sex: Female Weight at : 6 lb 12 oz Score 1 Minute: 9 Score 5 Minutes: 9 Gestational Age in Weeks and Days at Delivery: 41 Weeks and 0 Days Delivery Method: Spontaneous Vaginal Labor: Spontaneous Did Patient attempt ?: N/A, No Previous Amniotic Fluid: Clear Estimated Blood Loss: 200 Anesthesia/Analgesia: None Delivered By: Josiane Eduardo Nursery Level of Nursery: Regular/Bedside - Perineum Perineal Injury: Perineal Laceration, 1st Degree Perineal Injury Comment: laceration hemostatic, pt declined repair Perineal Repair: None - Events Delivery Events of Note: None Apply, Precipitous Delivery - Additional Delivery Notes Additional Delivery Notes: 33yo G4, now P4 at 41+0 weeks admitted in early labor. Regular contractions started at 0900; she quickly progressed to complete. Pt began pushing spontaneously on the toilet at 0957, with of liveborn female at 0959 while standing above the toilet. Shoulders followed easily, knot in the umbilical cord noted. to mother's chest, dried and stimulated with spontaneous cry. 's 9 and 9. Delayed cord clamping, cord then cut by FOB. Spontaneous farhat delivery of intact placenta at 1008. Fundus firm with massage. EBL 200 mL. After careful inspection a first degree perineal laceration was noted. Laceration hemostatic, pt declined repair. Infant . Mother and in stable condition at time of note.
[2018-12-31] MEDS ORDERED: Simethicone TAB* 80 MG TAB.CHEW PO SCH (12:30)
[2018-12-31] MEDS: Docusate CAP* 100 MG PO SCH ×2 (14:31→21:25)
[2018-12-31] MEDS: Witch Hazel PAD* JAR TOPICAL PRN (16:16)
[2019-01-01] MEDS: Acetaminophen TAB* 325 MG PO PRN ×3 (00:20→11:39)
[2019-01-01] MEDS: Ibuprofen TAB* 600 MG PO PRN ×2 (00:20→06:11)
[2019-01-01] MEDS ORDERED: LEVOTHYROXINE 175 MCG PO SCH (06:00)
[2019-01-01 07:28] LABS: ABS Basophils 0.1 10^3/ul (0-0.2); ABS Eosinophils 0.4 10^3/ul (0-0.6); ABS Lymphocytes 2.5 10^3/ul (1.0-4.8); ABS Monocytes 0.8 10^3/ul (0-0.8); ABS Neutrophils 8.2 10^3/ul (1.5-7.7); Eosinophil % 3.1 %; Hematocrit 36 % (35-47); Hemoglobin 12.5 g/dL (12.0-16.0); Mean Corpuscular HGB Conc 35 g/dL (31-36); Mean Corpuscular Hemoglobin 30 pg (27-31); Mean Corpuscular Volume 86 fL (80-97); Mean Platelet Volume 7.9 fL (7.4-10.4); Platelet Count 123 10^3/uL (150-450); Red Blood Count 4.15 10^6 /uL (3.70-4.87); Red Cell Distribution Width 16 % (10-15); White Blood Count 11.9 10^3/uL (3.5-10.8)
[2019-01-01 08:06] VITALS: BP 108/61
[2019-01-01] MEDS ORDERED: Ferrous Gluconate TAB* 324 MG TAB PO SCH (09:00)
[2019-01-01] MEDS: Witch Hazel PAD* JAR TOPICAL PRN (09:01)
[2019-01-01] MEDS: Docusate CAP* 100 MG PO SCH (09:01)
== END 2019-01-01 11:54 | disposition home or self-care (01) | DRG 560 ==
LOC: MCHOBOUT 06:06 → MCHOB 08:54
PROVIDERS: ADMIT Advanced Practice Midwife; ATTEND Advanced Practice Midwife
PROC: 10E0XZZ Delivery of Products of Conception, External Approach (ICD-10-PCS; principal; 2018-12-31)
PROC: 4A1HXCZ Monitoring of Products of Conception, Cardiac Rate, External Approach (ICD-10-PCS; 2018-12-31)
DX: O48.0 Post-term pregnancy (principal); Z37.0 Single live birth; O99.284 Endocrine, nutritional and metabolic diseases complicating childbirth; E89.0 Postprocedural hypothyroidism; O76 Abnormality in fetal heart rate and rhythm complicating labor and delivery; O62.3 Precipitate labor; O70.0 First degree perineal laceration during delivery; O99.344 Other mental disorders complicating childbirth; F41.9 Anxiety disorder, unspecified; O69.2XX0 Labor and delivery complicated by other cord entanglement, with compression, not applicable or unspecified; Z3A.41 41 weeks gestation of pregnancy; Z85.850 Personal history of malignant neoplasm of thyroid
CPT/HCPCS: 36415; 80307; 85025; A9270-GY